=== PATIENT | female | born 1940 | race Caucasian/White ===

== ENCOUNTER → 2017-01-13 | Outpatient (CLI) | payer MEDICARE ==
--- NOTE | 2017-01-14 13:35 | MM ---
Reason for exam: screening (asymptomatic). Last mammogram was performed 1 year ago. History: Patient is postmenopausal and had first child at age 33. Family history of breast cancer in aunt at age 50. Cyst aspiration of the right breast, June 29, 2002. Took estrogen for 19 years beginning at age 53. Physical Findings: A clinical breast exam by your physician is recommended on an annual basis and results should be correlated with mammographic findings. MG 3D Screening Mammo W/Cad Bilateral CC and MLO view(s) were taken. Prior study comparison: January 07, 2016, bilateral MG 3d screening mammo w/cad. There are scattered fibroglandular densities. No significant changes when compared with prior studies. ASSESSMENT: Benign, BI-RAD 2 RECOMMENDATION: Routine screening mammogram of both breasts in 1 year.
== END | disposition home or self-care (01) ==
LOC: RADMAMWWP 11:01
PROVIDERS: ATTEND Internal Medicine
DX: Z12.31 Encounter for screening mammogram for malignant neoplasm of breast (principal)
CPT/HCPCS: 77063; G0202

== ENCOUNTER → 2018-01-14 | Outpatient (CLI) | payer MEDICARE ==
--- NOTE | 2018-01-18 14:57 | MM ---
Reason for exam: screening (asymptomatic). Last mammogram was performed 1 year ago. History: Patient is postmenopausal and had first child at age 33. Family history of breast cancer in aunt at age 50. Cyst aspiration of the right breast, June 29, 2002. Took estrogen for 19 years beginning at age 53. Physical Findings: A clinical breast exam by your physician is recommended on an annual basis and results should be correlated with mammographic findings. MG 3D Screening Mammo W/Cad Bilateral CC and MLO view(s) were taken. Prior study comparison: January 13, 2017, bilateral MG 3d screening mammo w/cad. January 07, 2016, bilateral MG 3d screening mammo w/cad. There are scattered fibroglandular densities. Right retroareolar nodular density 12 o'clock position. This finding is changed when compared with previous exams. ASSESSMENT: Incomplete: need additional imaging evaluation, BI-RAD 0 RECOMMENDATION: Special view mammogram of the right breast. If lesion persists on supplemental views, image directed ultrasound is recommended. [facility] will attempt to contact patient to return for supplemental views and ultrasound if indicated.
== END | disposition home or self-care (01) ==
LOC: RADMAMWWP 08:03
PROVIDERS: ATTEND Internal Medicine
DX: Z12.31 Encounter for screening mammogram for malignant neoplasm of breast (principal)
CPT/HCPCS: 77063; 77067

== ENCOUNTER → 2018-01-26 | Outpatient (CLI) | payer MEDICARE ==
--- NOTE | 2018-02-03 10:40 | MM ---
Reason for exam: additional evaluation requested from abnormal screening. Last mammogram was performed less than 1 month ago. History: Patient is postmenopausal and had first child at age 33. Family history of breast cancer in aunt at age 50. Cyst aspiration of the right breast, June 29, 2002. Took estrogen for 19 years beginning at age 53. Physical Findings: Nurse did not find any significant physical abnormalities on exam. MG 3D Work Up W/Cad RT Spot compression CC, spot compression MLO, and ML view(s) were taken of the right breast. Prior study comparison: January 14, 2018, bilateral MG 3d screening mammo w/cad. January 13, 2017, bilateral MG 3d screening mammo w/cad. Density less conspicuous. 6 month follow up recommended. These results were verbally communicated with the patient and result sheet given to the patient on 01/26/18. ASSESSMENT: Probably benign, BI-RAD 3 RECOMMENDATION: Follow-up diagnostic mammogram of the right breast in 6 months.
== END | disposition home or self-care (01) ==
LOC: RADMAMWWP 08:15
PROVIDERS: ATTEND Internal Medicine
DX: R92.8 Other abnormal and inconclusive findings on diagnostic imaging of breast (principal)
CPT/HCPCS: 77065; G0279; 77061

== ENCOUNTER 2018-07-10 08:18 | Emergency (ER) | payer MEDICARE ==
[2018-07-10 08:27] VITALS: BP 167/83; PULSE 82; RESP 20; TEMP 97.9
--- NOTE | 2018-07-10 08:50 | ED ---
Extremity Problem HPI - General Chief complaint: Extremity Problem,Nontraumatic Stated complaint: leg pain when walking Time Seen by Provider: 07/10/18 08:29 Source: patient, RN notes reviewed Mode of arrival: wheelchair Limitations: no limitations - History of Present Illness Initial comments: This a 77-year-old female presents emergency Department chief complaint of left leg pain. Patient states he was bothering her yesterday when she was sitting in a chair and then she got up to do laundry. Patient states that she had no injury. Patient states pain is in the back of her left knee and into her thigh region. Denies any swelling, redness or any discoloration. She has no history DVT though she is concerned at this time. Denies any chest pain or shortness of breath. Patient states that she presented today for an ultrasound. Patient states that the pain has improved since yesterday. - Related Data Allergies Allergy/AdvReac Type Severity Reaction Status Date / Time No Known Allergies Allergy Verified 07/10/18 08:26 Review of Systems ROS Statement: Those systems with pertinent positive or pertinent negative responses have been documented in the HPI. ROS Other: All systems not noted in ROS Statement are negative. Past Medical History Past Medical History: Hypertension History of Any Multi-Drug Resistant Organisms: None Reported Past Surgical History: Hysterectomy Past Psychological History: No Psychological Hx Reported Smoking Status: Never smoker Past Alcohol Use History: None Reported Past Drug Use History: None Reported General Exam Limitations: no limitations General appearance: alert, in no apparent distress Head exam: Present: atraumatic, normocephalic, normal inspection Respiratory exam: Present: normal lung sounds bilaterally. Absent: respiratory distress, wheezes, rales, rhonchi, stridor Cardiovascular Exam: Present: regular rate, normal rhythm, normal heart sounds. Absent: systolic murmur, diastolic murmur, rubs, gallop, clicks Extremities exam: Present: other (Mild tenderness to left popliteal region, full range of motion left knee with no erythema no swelling leg is neurovascularly intact with equal pedal pulses. Strength is 5/5) Course Vital Signs 07/10/18 08:23 Temperature 97.9 F Pulse Rate 82 Respiratory 20 Rate Blood Pressure 167/83 O2 Sat by Pulse 99 Oximetry Medical Decision Making - Medical Decision Making 77-year-old female presents emergency department for left leg pain. Patient is concern for possible DVT. Ultrasound was obtained which is negative for DVT. Patient most likely has a left leg strain or small Burgess cyst. Patient we discharged advised take Tylenol Motrin. She did state the pain has improved since yesterday. There is no signs of infection or erythema no swelling. Disposition Clinical Impression: Left leg pain Disposition: HOME SELF-CARE Condition: Stable Instructions: Leg Pain (ED) Additional Instructions: Please return to the Emergency Department if symptoms worsen or any other concerns. Is patient prescribed a controlled substance at d/c from ED?: No Referrals: Abisai Ovalle MD [Primary Care Provider] - 1-2 days Time of Disposition: 09:28
--- NOTE | 2018-07-10 09:15 | US ---
EXAMINATION TYPE: US venous doppler duplex LE LT DATE OF EXAM: 07/10/2018 8:42 AM COMPARISON: CLINICAL HISTORY: Pain. Pain behind knee when walking. No swelling. No redness. No hx of blood neo ts. On baby aspirin. SIDE PERFORMED: Left TECHNIQUE: The lower extremity deep venous system is examined utilizing real time linear array sonog saeed with graded compression, doppler sonography and color-flow sonography. VESSELS IMAGED: External Iliac Vein (EIV) Common Femoral Vein Deep Femoral Vein Greater Saphenous Vein * Femoral Vein Popliteal Vein Small Saphenous Vein * Proximal Calf Veins (* superficial vessels) Left Leg: Negative for DVT No popliteal fossa lesion is seen. IMPRESSION: THIS EXAMINATION IS NEGATIVE FOR DVT IN THE LEFT LEG.
== END 2018-07-10 09:56 | disposition home or self-care (01) ==
LOC: EC 08:18
DX: M79.605 Pain in left leg (principal)
CPT/HCPCS: 99283

== ENCOUNTER → 2018-07-29 | Outpatient (CLI) | payer MEDICARE ==
--- NOTE | 2018-07-29 10:47 | MM ---
Reason for exam: follow-up at short interval from prior study. Last mammogram was performed 6 months ago. History: Patient is postmenopausal and had first child at age 33. Family history of breast cancer in aunt at age 50. Cyst aspiration of the right breast, June 29, 2002. Took estrogen for 19 years beginning at age 53. Physical Findings: Nurse did not find any significant physical abnormalities on exam. MG 3D Diag Mammo W/Cad RT CC and MLO view(s) were taken of the right breast. Prior study comparison: January 26, 2018, right breast MG 3d work up w/cad RT. January 14, 2018, bilateral MG 3d screening mammo w/cad. There are scattered fibroglandular densities. Upper outer quadrant retroareolar focal asymmetry appears unchanged from 2015. These results were verbally communicated with the patient and result sheet given to the patient on 07/29/18. ASSESSMENT: Benign, BI-RAD 2 RECOMMENDATION: Return to routine screening mammogram schedule for both breasts. Back on schedule.
== END | disposition home or self-care (01) ==
LOC: RADMAMWWP 10:03
PROVIDERS: ATTEND Internal Medicine
DX: R92.8 Other abnormal and inconclusive findings on diagnostic imaging of breast (principal)
CPT/HCPCS: 77065; G0279; 77061

== ENCOUNTER → 2018-08-25 | Outpatient (CLI) | payer MEDICARE ==
--- NOTE | 2018-08-25 11:29 | XR ---
EXAMINATION TYPE: XR knee complete bilateral DATE OF EXAM: 08/25/2018 CLINICAL HISTORY: Bilateral posterior knee pain, greater on the left. TECHNIQUE: Three views of the bilateral knees were obtained. COMPARISON: None. FINDINGS: There is no acute fracture/dislocation evident in either knee. There is prominence of the soft tissues overlying the medial compartment of the left knee in the region of the medial collatera l ligament with well-circumscribed fragment at the cranial aspect of the medial femoral condyle likel y from prior injury. There are very few small marginal osteophytes of the patellofemoral compartment and medial compartment bilaterally. No suprapatellar joint effusion of either knee. IMPRESSION: There is no acute fracture or dislocation in either knee. Mild bicompartmental arthrosis of both knees. Prominent soft tissues overlying the medial compartment on the left in the region of the medial collateral ligament. MRI could assess for ligament injury.
== END | disposition home or self-care (01) ==
LOC: RADXRMAIN 10:34
PROVIDERS: ATTEND Internal Medicine
DX: M17.0 Bilateral primary osteoarthritis of knee (principal)

== ENCOUNTER → 2018-09-06 | Outpatient (CLI) | payer MEDICARE ==
--- NOTE | 2018-09-06 11:29 | US ---
EXAMINATION TYPE: US venous doppler duplex LE LT DATE OF EXAM: 09/06/2018 11:13 AM COMPARISON: Left lower extremity venous ultrasound July 10, 2018 CLINICAL HISTORY: I80.9 Phlebitis and Thrombophlebitis Unspecified. left leg pain and swelling, patie nt states better today, no h/o dvt SIDE PERFORMED: left TECHNIQUE: The lower extremity deep venous system is examined utilizing real time linear array sonog saeed with graded compression, doppler sonography and color-flow sonography. VESSELS IMAGED: External Iliac Vein (EIV) Common Femoral Vein Deep Femoral Vein Greater Saphenous Vein * Femoral Vein Popliteal Vein Small Saphenous Vein * Proximal Calf Veins (* superficial vessels) Left Leg: Appears negative for DVT, within left pop fossa there is a 4.8cm fluid collection that may represent Burgess's cyst *spoke with Jem at office Grayscale, color doppler, spectral doppler imaging performed of the deep veins of the left lower extr emity. There is normal flow, compressibility, vascular waveforms. IMPRESSION: No ultrasound evidence for acute DVT in the left lower extremity on today's study. Leoncio bean end of study there is elongated moderate-sized popliteal or Burgess's cyst felt present which was no t clearly identified on prior ultrasound.
== END ==
LOC: RADUSWWP 10:39
PROVIDERS: ATTEND Orthopaedic Surgery
DX: M79.605 Pain in left leg (principal); M25.561 Pain in right knee; M17.11 Unilateral primary osteoarthritis, right knee; M17.12 Unilateral primary osteoarthritis, left knee

== ENCOUNTER → 2020-03-07 | Outpatient (CLI) | payer MEDICARE ==
--- NOTE | 2020-03-08 09:54 | MM ---
Reason for exam: screening (asymptomatic). Last mammogram was performed 1 year and 7 months ago. History: Patient is postmenopausal and had first child at age 33. Family history of breast cancer in aunt at age 50. Cyst aspiration of the right breast, June 29, 2002. Took estrogen for 19 years beginning at age 53. Physical Findings: A clinical breast exam by your physician is recommended on an annual basis and results should be correlated with mammographic findings. MG 3D Screening Mammo W/Cad Bilateral CC and MLO view(s) were taken. Prior study comparison: July 29, 2018, right breast MG 3d diag mammo w/cad RT. January 26, 2018, right breast MG 3d work up w/cad RT. There are scattered fibroglandular densities. Stable benign calcifications. There is no discrete abnormality. No significant changes when compared with prior studies. ASSESSMENT: Benign, BI-RAD 2 RECOMMENDATION: Routine screening mammogram of both breasts in 1 year.
== END | disposition home or self-care (01) ==
LOC: RADMAMWWP 10:24
PROVIDERS: ATTEND Internal Medicine
DX: Z12.31 Encounter for screening mammogram for malignant neoplasm of breast (principal)
CPT/HCPCS: 77063; 77067

== ENCOUNTER → 2021-10-29 | Outpatient (CLI) | payer MEDICARE ==
--- NOTE | 2021-10-29 13:14 | CT ---
EXAMINATION TYPE: CT elbow RT wo con DATE OF EXAM: 10/29/2021 COMPARISON: None HISTORY: Rt radial head fx CT DLP: 135.40 mGycm Automated exposure control for dose reduction was used. FINDINGS: Exam is markedly limited due to severe motion artifact. There is soft tissue edema with a comminuted intra-articular fracture of the radial head. Pathologic joint effusion suspected posteriorly and anteriorly. Visualized ulna and humerus are grossly intact IMPRESSION: DISPLACED INTRA-ARTICULAR COMMINUTED FRACTURE OF THE RADIAL HEAD
== END | disposition home or self-care (01) ==
LOC: RADCTMAIN 12:13
PROVIDERS: ATTEND Orthopaedic Surgery
DX: S52.121A Displaced fracture of head of right radius, initial encounter for closed fracture (principal); X58.XXXA Exposure to other specified factors, initial encounter

== ENCOUNTER 2021-11-10 10:40 | Day surgery (SDC) | payer MEDICARE ==
[2021-11-05 15:38] VITALS: BMI 33.2
[~2021-11-10 10:40] MED LIST: DEXAMETHASONE SOD PHOSPHATE 4 MG/ML 1 ML VIAL IV ONE; HYDROmorphone 0.5 MG/0.5 ML SYRINGE IVP PRN; LACTATED RINGERS 1,000 ML IV SCH; LIDOCAINE 1% (10MG/ML) FOR IV START INTRADERMA PRN; MIDAZOLAM 2 MG/2 ML VIAL IV PRN; ONDANSETRON 4 MG/2 ML VIAL IVP ONE
[2021-11-10 11:01] VITALS: TEMP 98.5
[2021-11-10] MEDS ORDERED: MIDAZOLAM 2 MG/2 ML VIAL IVP ONE (11:47)
[2021-11-10 11:59] VITALS: RESP 16
--- NOTE | 2021-11-10 11:59 | P.ANPRN ---
Procedure Note - Anesthesia - Nerve Block Performed Right Supraclavicular Single Time Out Performed: Yes (1147) Date of Procedure: 11/10/21 Procedure Start Time: 11:47 Procedure Stop Time: 11:52 Location of Patient: PreOp Indication: Acute Post-Operative Pain, Requested by Surgeon Sedation Type: Sedate with meaningful contact maintained Preparation: Sterile Prep Position: Sitting Catheter: None Needle Types: Pajunk Needle Gauge: 21 Ultrasound used to visualize needle placement: Yes Ultrasound used to observe medication spread: Yes Injectate: 0.5% Ropivacaine (see comment for volume) (0.5% Ropivacaine (see comment for volume)- (12 mL of 0.5% ropivacaine mixed with10 mL of preservative free normal saline injected with negative intermittent aspiration) Blood Aspirated: No Pain Paresthesia on Injection Noted: No Resistance on Injection: Normal Image Stored and Saved: Yes Events: Uneventful and Well Tolerated
[2021-11-10] MEDS ORDERED: PROPOFOL 10 MG/ML 20 ML VIAL IV ONE (13:41)
[2021-11-10] MEDS ORDERED: fentaNYL (PF) 50 MCG/ML 2 ML AMP ONE (13:41)
[2021-11-10] MEDS ORDERED: ROPIVACAINE 5 MG/ML 30 ML VIAL ONE (13:41)
[2021-11-10] MEDS ORDERED: SODIUM CHLORIDE 0.9% (PF) 10 ML VIAL ONE (13:41)
[2021-11-10] MEDS ORDERED: MIDAZOLAM 2 MG/2 ML VIAL ONE (13:41)
[2021-11-10 15:40] VITALS: BP 123/70; PULSE 87
--- NOTE | 2021-11-10 15:41 | P.OP ---
Date of Procedure: 11/10/21 Preoperative Diagnosis: Right radial head fracture Postoperative Diagnosis: Same Procedure(s) Performed: Right radial head arthroplasty Implants: Skeletal dynamics, 9 stem, 22 mm head Anesthesia: MAC, regional Surgeon: Kalyani Myers Director Script #1: Julieta Greene Estimated Blood Loss (ml): 20 Pathology: none sent Condition: stable Disposition: PACU Indications for Procedure: Kimberly is a 81-year-old female who sustained a ground-level fall resulting in a right radial head fracture. A large fragment of the radial head has been displaced and is sitting lateral to the capitellum. We had a long discussion with the patient and her family about treatment options. To regain any motion that piece would need to be removed. 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 Given her activity level we decided to proceed with a radial head arthroplasty. Description of Procedure: The patient, operative extremity, and procedure were identified in the preoperative holding area. After informed consent was obtained the patient received regional block by the anesthesia team. She was then brought back to the operating room where the extremity was prepped and draped in normal sterile fashion with tourniquet along the patient's brachium. After formal timeout was performed the tourniquet was inflated. A oblique incision was then made from the lateral epicondyles to the radius, crossing anterior to the radial head. Dissection was carried down to the forearm fascia with care taken to protect the cutaneous nerves. The interval between EDC and ECRB was utilized to access the radiocapitellar joint. The radiocapitellar joint was accessed anterior to the collateral ligament. Once the capsulotomy was performed the displaced piece of the radial head was easily removed. Dissection was carried down around the radial neck careful to protect the PI and with pronation. The manger of the radial head was removed with the saw. The 2 pieces were then reunited in the sizing guide. The radial head measured 24 mm. The spacer guide was then utilized to make a new cut in the radial neck. Sequential broaches were then used in the proximal radius until some cortical purchase was felt. This was with the size 9 broach. A trial with a 0 neck, 9 broach, and 22 mm head were then inserted. Sizing was assessed on fluoroscopy and found to be adequate, without overstuffing. The trial was removed and the wound was copiously irrigated. Final implants were then opened and implanted. The radial head was placed on the stem and provisionally fixed. The forearm jig was then utilized to set the tilt of the radial head. The screw was then tightened down to the torque limitation. All instruments were then removed the size and placement of the hardware was again checked with fluoroscopy. Wound was again irrigated. The annular ligament was then repaired with 0 Vicryl. The longitudinal split between the extensor tendons was also repaired with Vicryl. Tourniquet was then let down and hemostasis was achieved. The remainder of the wound was closed in a layered fashion with 4-0 Monocryl and skin glue. Wound was dressed with a 4 x 4 and Tegaderm and Meek wrap. Patient was aroused by the anesthesia team and brought back to PACU in stable condition.
== END 2021-11-10 16:11 | disposition home or self-care (01) ==
LOC: OR 10:40
PROVIDERS: ATTEND Orthopaedic Surgery Hand Surgery
DX: S52.121A Displaced fracture of head of right radius, initial encounter for closed fracture (principal); W19.XXXA Unspecified fall, initial encounter; I10 Essential (primary) hypertension; M19.90 Unspecified osteoarthritis, unspecified site; K21.9 Gastro-esophageal reflux disease without esophagitis; Z97.3 Presence of spectacles and contact lenses; Z90.710 Acquired absence of both cervix and uterus; Z82.49 Family history of ischemic heart disease and other diseases of the circulatory system; Z79.1 Long term (current) use of non-steroidal anti-inflammatories (NSAID); Z79.891 Long term (current) use of opiate analgesic; Z79.899 Other long term (current) drug therapy; Z79.82 Long term (current) use of aspirin; Z88.5 Allergy status to narcotic agent
CPT/HCPCS: 64415; 76942; 24666; C1776; J2250; J1100; J0690; J2405; J3010; J2795; J2704

== ENCOUNTER → 2022-03-12 | Outpatient (CLI) | payer MEDICARE ==
--- NOTE | 2022-03-13 09:50 | BD ---
EXAMINATION TYPE: Axial Bone Density DATE OF EXAM: 03/12/2022 COMPARISON: NONE CLINICAL HISTORY: 81 years year old Female. ICD-10 CODE: M81.0 AGE RELATED OSTEOPOROSIS Height: 61 Weight: 168.6 FRAX RISK QUESTIONS: Alcohol (3 or more units per day): NO Family History (Parent hip fracture): NO Glucocorticoids (More than 3mos): NO History of Fracture in Adulthood: YES Secondary Osteoporosis: 1. Type 1 Diabetes: NO 2. Hyperthyroidism: NO 3. Menopause before 45: YES 4. Malnutrition: NO 5. Chronic liver disease: NO Rheumatoid Arthritis: NO Current Tobacco Use: NO RISK FACTORS HISTORY OF: Hip Fracture (Right/Left): NO Spine Fracture: NO History of Wrist Fracture: NO Surgery to Spine/Hip(right/left)/Wrist (right/left): NO Family History of Osteoporosis: NO Active: YES Diet low in dairy products/other sources of calcium: NO Postmenopausal woman: YES Take estrogen and/or progesterone medications: NO Lost more than 2 inches in height since high school: NO Frequent falls: NO Poor Health: NO Hyperparathyroidism: NO Adrenal Insufficiency: NO MEDICATIONS: Prednisone or other steroids: NO Thyroid Medications: NO Osteoporosis Medications: NO Additional Medications: BP MEDS, MULTI VIT., EXAM MEASUREMENTS: Bone mineral densitometry was performed using the Myfacepage System. Bone mineral density as measured about the Lumbar spine is: ----- L1-L4(G/cm2): 1.221 T Score Values are as follows: ----- L1: -0.3 ----- L2: -0.3 ----- L3: 1.0 ----- L4: 0.6 ----- L1-L4: 0.3 Bone mineral density has: INCREASED 1.9 % since study of: 12/04/2011 Bone mineral density about the R hip (g/cm2): 0.830 Bone mineral density about the L hip (g/cm2): 0.884 T Score values are as follows: -----R Neck: -1.5 -----L Neck: -1.1 -----R Total: -0.4 -----L Total: -0.4 Bone mineral density has: DECREASED 8.5 % since study of: 12/04/2011 FRAX%s: The graph provided illustrates a 18.8% chance for a major osteoporotic fx and a 4.0% chance f or the hips probability for fx in 10 years time. IMPRESSION: Normal (Values between +1 and -1 indicate normal bone mass). Consider repeating this study in 5 year s or sooner if there is some new clinical indication. NOTE: T-SCORE=SD OF THE YOUNG ADULT MEAN.
== END | disposition home or self-care (01) ==
LOC: RADBDWWP 07:54
PROVIDERS: ATTEND Pediatrics
DX: M85.89 Other specified disorders of bone density and structure, multiple sites (principal)
CPT/HCPCS: 77080

== ENCOUNTER 2023-05-24 13:13 | Inpatient (IN) | payer MEDICARE ==
[2023-05-24] MEDS ORDERED: SODIUM CHLORIDE 0.9% 500 ML 500 ML IV ONE (13:43)
--- NOTE | 2023-05-24 13:46 | ED ---
General Adult HPI - General Chief complaint: Altered Mental Status Stated complaint: AMS Time Seen by Provider: 05/24/23 13:35 Source: patient, RN notes reviewed, old records reviewed Mode of arrival: EMS Limitations: altered mental status - History of Present Illness Initial comments: This is a 82-year-old female presents emergency Department because of altered mental status. states the last couple of days she has gotten slowly more more confused and today it was really bad to the point where she was unable to use her own phone. states she's normally alert and oriented 4. denies any trauma. There's been no history of any fevers chills. Patient had no complaints of any pain. Patient himself does not know why she is here. - Related Data Home Medications Medication Instructions Recorded Confirmed lisinopriL [Zestril] 10 mg PO DAILY 11/05/21 05/24/23 Allergies Allergy/AdvReac Type Severity Reaction Status Date / Time hydrocodone AdvReac dizzy Verified 05/24/23 15:51 Review of Systems ROS Statement: Those systems with pertinent positive or pertinent negative responses have been documented in the HPI. ROS Other: All systems not noted in ROS Statement are negative. Past Medical History Past Medical History: GERD/Reflux, Hypertension, Musculoskeletal Disorder, Osteoarthritis (OA) Additional Past Medical History / Comment(s): fell on ice 2 weeks ago & fx. right elbow-currently in splint & sling, hx. rheumatic fever as a teen History of Any Multi-Drug Resistant Organisms: None Reported Past Surgical History: Hysterectomy Additional Past Surgical History / Comment(s): colonoscopy Past Anesthesia/Blood Transfusion Reactions: No Reported Reaction Past Psychological History: No Psychological Hx Reported Smoking Status: Never smoker - Past Family History Mother Family Medical History: CVA/TIA General Exam - General Exam Comments Initial Comments: GENERAL: Patient is well-developed and well-nourished. Patient is nontoxic and well- hydrated and is in no acute distress. ENT: Neck is soft and supple. No significant lymphadenopathy is noted. Oropharynx is clear. Moist mucous membranes. Neck has full range of motion without eliciting any pain. EYES: The sclera were anicteric and conjunctiva were pink and moist. Extraocular movements were intact and pupils were equal round and reactive to light. Eyelids were unremarkable. PULMONARY: Unlabored respirations. Good breath sounds bilaterally. No audible rales rhonc hi or wheezing was noted. CARDIOVASCULAR: There is a regular rate and rhythm without any murmurs gallops or rubs. ABDOMEN: Soft and nontender with normal bowel sounds. SKIN: Skin is clear with no lesions or rashes and otherwise unremarkable. NEUROLOGIC: Patient is alert and oriented 2. Cranial nerves II through XII are grossly intact. Motor and sensory are also intact. Normal speech, volume and content. Symmetrical smile. MUSCULOSKELETAL: Normal extremities with adequate strength and full range of motion. LYMPHATICS: No significant lymphadenopathy is noted PSYCHIATRIC: Normal psychiatric evaluation. Limitations: altered mental status Course Vital Signs 05/24/23 13:25 Temperature 98.5 F Pulse Rate 75 Respiratory 16 Rate Blood Pressure 180/73 O2 Sat by Pulse 97 Oximetry Medical Decision Making - Medical Decision Making EKG is interpreted by myself. EKG shows a sinus rhythm at 76 bpm CO interval 239 QRS is 82 QT interval 382 QTC is 412 per patient's EKG shows no ST segment elevation or depression. Was pt. sent in by a medical professional or institution (, PA, HEAD OF MARKETING, urgent care, hospital, or senior living...) When possible be specific @ -No Did you speak to anyone other than the patient for history (EMS, parent, family, police, friend...)? What history was obtained from this source @ - gave us all the history Did you review nursing and triage notes (agree or disagree)? Why? @ -I reviewed and agree with nursing and triage notes Were old charts reviewed (outside hosp., previous admission, EMS record, old EKG, old radiological studies, urgent care reports/EKG's, senior living records)? Report findings @ -No old charts were reviewed Differential Diagnosis (chest pain, altered mental status, abdominal pain women, abdominal pain men, vaginal bleeding, weakness, fever, dyspnea, syncope, headache, dizziness, GI bleed, back pain, seizure, CVA, palpatations, mental health, musculoskeletal)? @ -Differential CVA Ischemic stroke, hemorrhagic stroke, brain tumor, atypical migraine, Wernicke's encephalopathy, seizure, multiple sclerosis, meningitis, encephalitis, hypoglycemia, Guillain-Espinosa, electrolytes disturbance, myasthenia gravis.... This is not meant to be an all-inclusive list EKG interpreted by me (3pts min.). @ -As above X-rays interpreted by me (1pt min.). @ -Chest x-ray shows no acute abnormality CT interpreted by me (1pt min.). @ -CT of the brain shows a area of ischemia in the parietal region U/S interpreted by me (1pt. min.). @ -None done What testing was considered but not performed or refused? (CT, X-rays, U/S, labs)? Why? @ -None What meds were considered but not given or refused? Why? @ -None Did you discuss the management of the patient with other professionals (professionals i.e. , PA, HEAD OF MARKETING, lab, RT, psych nurse, social science analyst, rn telephonic, teacher, fourth officer, briefcase sewer)? Give summary @ -I spoke with Dr. Irizarry he agreed to admit the patient Was smoking cessation discussed for >3mins.? @ -No Was critical care preformed (if so, how long)? @ -No Were there social determinants of health that impacted care today? How? (Homelessness, low income, unemployed, alcoholism, drug addiction, transportation, low edu. Level, literacy, decrease access to med. care, retirement, rehab)? @ -No Was there de-escalation of care discussed even if they declined (Discuss DNR or withdrawal of care, Hospice)? DNR status @ -No What co-morbidities impacted this encounter? (DM, HTN, Smoking, COPD, CAD, Cancer, CVA, ARF, Chemo, Hep., AIDS, mental health diagnosis, sleep apnea, morbid obesity)? @ -None Was patient admitted / discharged? Hospital course, mention meds given and route, prescriptions, significant lab abnormalities, going to OR and other pertinent info. @ -Patient's mental status continued to be altered. Undiagnosed new problem with uncertain prognosis? @ -No Drug Therapy requiring intensive monitoring for toxicity (Heparin, Nitro, Insulin, Cardizem)? @ -No Were any procedures done? @ -No Diagnosis/symptom? @ -CVA Acute, or Chronic, or Acute on Chronic? @ -Acute Uncomplicated (without systemic symptoms) or Complicated (systemic symptoms)? @ -Complicated Side effects of treatment? @ -No Exacerbation, Progression, or Severe Exacerbation? @ -No Poses a threat to life or bodily function? How? (Chest pain, USA, SD, pneumonia, PE, COPD, DKA, ARF, appy, cholecystitis, CVA, Diverticulitis, Homicidal, Suicidal, threat to staff... and all critical care pts) @ -Yes this could lead to a massive stroke and possibly - Lab Data Result diagrams: 05/24/23 14:27 05/24/23 14:27 Lab Results 05/24/23 05/24/23 05/24/23 Range/Units 14:27 14:27 14:27 WBC 7.9 (3.8-10.6) k/uL RBC 4.07 (3.80-5.40) m/uL Hgb 13.4 (11.4-16.0) gm/dL Hct 40.9 (34.0-46.0) % MCV 100.4 H (80.0-100.0) fL MCH 32.8 (25.0-35.0) pg MCHC 32.7 (31.0-37.0) g/dL RDW 13.3 (11.5-15.5) % Plt Count 293 (150-450) k/uL MPV 8.7 Neutrophils % 35 % Lymphocytes % 54 % Monocytes % 6 % Eosinophils % 2 % Basophils % 0 % Neutrophils # 2.8 (1.3-7.7) k/uL Lymphocytes # 4.2 (1.0-4.8) k/uL Monocytes # 0.5 (0-1.0) k/uL Eosinophils # 0.1 (0-0.7) k/uL Basophils # 0.0 (0-0.2) k/uL PT 9.7 (9.0-12.0) sec INR 0.9 (<1.2) APTT 20.4 L (22.0-30.0) sec Sodium (137-145) mmol/L Potassium (3.5-5.1) mmol/L Chloride (98-107) mmol/L Carbon Dioxide (22-30) mmol/L Anion Gap mmol/L BUN (7-17) mg/dL Creatinine (0.52-1.04) mg/dL Est GFR (CKD-EPI)AfAm (>60 ml/min/1.73 sqM) Est GFR (CKD-EPI)NonAf (>60 ml/min/1.73 sqM) Glucose (74-99) mg/dL Calcium (8.4-10.2) mg/dL Total Bilirubin (0.2-1.3) mg/dL AST (14-36) U/L ALT (4-34) U/L Alkaline Phosphatase (38-126) U/L Troponin I (0.000-0.034) ng/mL Total Protein (6.3-8.2) g/dL Albumin (3.5-5.0) g/dL Urine Color Colorless Urine Appearance Clear (Clear) Urine pH 6.5 (5.0-8.0) Ur Specific [place] 1.005 (1.001-1.035) Urine Protein Negative (Negative) Urine Glucose (UA) Negative (Negative) Urine Ketones Negative (Negative) Urine Blood Negative (Negative) Urine Nitrite Negative (Negative) Urine Bilirubin Negative (Negative) Urine Urobilinogen <2.0 (<2.0) mg/dL Ur Leukocyte Esterase Negative (Negative) Urine Opiates Screen Not Detected (NotDetected) Ur Oxycodone Screen Not Detected (NotDetected) Urine Methadone Screen Not Detected (NotDetected) Ur Propoxyphene Screen Not Detected (NotDetected) Ur Barbiturates Screen Not Detected (NotDetected) U Tricyclic Antidepress Not Detected (NotDetected) Ur Phencyclidine Scrn Not Detected (NotDetected) Ur Amphetamines Screen Not Detected (NotDetected) U Methamphetamines Scrn Not Detected (NotDetected) U Benzodiazepines Scrn Not Detected (NotDetected) Urine Cocaine Screen Not Detected (NotDetected) U Marijuana (THC) Screen Not Detected (NotDetected) 05/24/23 05/24/23 Range/Units 14:27 14:27 WBC (3.8-10.6) k/uL RBC (3.80-5.40) m/uL Hgb (11.4-16.0) gm/dL Hct (34.0-46.0) % MCV (80.0-100.0) fL MCH (25.0-35.0) pg MCHC (31.0-37.0) g/dL RDW (11.5-15.5) % Plt Count (150-450) k/uL MPV Neutrophils % % Lymphocytes % % Monocytes % % Eosinophils % % Basophils % % Neutrophils # (1.3-7.7) k/uL Lymphocytes # (1.0-4.8) k/uL Monocytes # (0-1.0) k/uL Eosinophils # (0-0.7) k/uL Basophils # (0-0.2) k/uL PT (9.0-12.0) sec INR (<1.2) APTT (22.0-30.0) sec Sodium 141 (137-145) mmol/L Potassium 4.4 (3.5-5.1) mmol/L Chloride 107 (98-107) mmol/L Carbon Dioxide 26 (22-30) mmol/L Anion Gap 8 mmol/L BUN 18 H (7-17) mg/dL Creatinine 0.79 (0.52-1.04) mg/dL Est GFR (CKD-EPI)AfAm 82 (>60 ml/min/1.73 sqM) Est GFR (CKD-EPI)NonAf 71 (>60 ml/min/1.73 sqM) Glucose 83 (74-99) mg/dL Calcium 9.1 (8.4-10.2) mg/dL Total Bilirubin 0.8 (0.2-1.3) mg/dL AST 34 (14-36) U/L ALT 13 (4-34) U/L Alkaline Phosphatase 57 (38-126) U/L Troponin I <0.012 (0.000-0.034) ng/mL Total Protein 6.5 (6.3-8.2) g/dL Albumin 3.6 (3.5-5.0) g/dL Urine Color Urine Appearance (Clear) Urine pH (5.0-8.0) Ur Specific [place] (1.001-1.035) Urine Protein (Negative) Urine Glucose (UA) (Negative) Urine Ketones (Negative) Urine Blood (Negative) Urine Nitrite (Negative) Urine Bilirubin (Negative) Urine Urobilinogen (<2.0) mg/dL Ur Leukocyte Esterase (Negative) Urine Opiates Screen (NotDetected) Ur Oxycodone Screen (NotDetected) Urine Methadone Screen (NotDetected) Ur Propoxyphene Screen (NotDetected) Ur Barbiturates Screen (NotDetected) U Tricyclic Antidepress (NotDetected) Ur Phencyclidine Scrn (NotDetected) Ur Amphetamines Screen (NotDetected) U Methamphetamines Scrn (NotDetected) U Benzodiazepines Scrn (NotDetected) Urine Cocaine Screen (NotDetected) U Marijuana (THC) Screen (NotDetected) Disposition Clinical Impression: CVA (cerebral vascular accident) Disposition: ADMITTED IP TO THIS HOSP Referrals: Wes Martin MD [Primary Care Provider] - 1-2 days Time of Disposition: 16:49
[2023-05-24 14:38] LABS: Appearance,Urine Clear (Clear); Bilirubin,Urine Negative (Negative); Blood,Urine Negative (Negative); Color,Urine Colorless; Glucose,Urine (UA) Negative (Negative); Ketones,Urine Negative (Negative); Leukocyte Esterase,Urine Negative (Negative); Nitrite,Urine Negative (Negative); PH, Urine 6.5 (5.0-8.0); Protein,Urine Negative (Negative); Specific Gravity,Urine 1.005 (1.001-1.035); Urobilinogen,Urine <2.0 mg/dL (<2.0)
[2023-05-24 14:46] LABS: Basophils % (A) 0 %; Eosinophils # (A) 0.1 k/uL (0-0.7); Eosinophils % (A) 2 %; HCT 40.9 % (34.0-46.0); HGB 13.4 gm/dL (11.4-16.0); Lymphocytes # (A) 4.2 k/uL (1.0-4.8); Lymphocytes % (A) 54 %; MCH 32.8 pg (25.0-35.0); MCHC 32.7 g/dL (31.0-37.0); MCV 100.4 fL (80.0-100.0); Mean Platelet Volume 8.7; Monocytes # (A) 0.5 k/uL (0-1.0); Monocytes % (A) 6 %; Neutrophils # (A) 2.8 k/uL (1.3-7.7); Neutrophils % (A) 35 %; Platelet Count 293 k/uL (150-450); RBC 4.07 m/uL (3.80-5.40); RDW 13.3 % (11.5-15.5); WBC 7.9 k/uL (3.8-10.6)
[2023-05-24 14:49] LABS: ALT 13 U/L (4-34); AST 34 U/L (14-36); African American GFR (CKD) 82 (>60 ml/min/1.73 sqM); Albumin 3.6 g/dL (3.5-5.0); Alkaline Phosphatase 57 U/L (38-126); Anion Gap 8 mmol/L; Blood Urea Nitrogen 18 mg/dL (7-17); Calcium 9.1 mg/dL (8.4-10.2); Carbon Dioxide 26 mmol/L (22-30); Chloride 107 mmol/L (98-107); Glucose 83 mg/dL (74-99); Non-African American GFR(CKD) 71 (>60 ml/min/1.73 sqM); Potassium 4.4 mmol/L (3.5-5.1); Sodium 141 mmol/L (137-145); Total Bilirubin 0.8 mg/dL (0.2-1.3); Total Protein 6.5 g/dL (6.3-8.2)
[2023-05-24 14:51] LABS: Amphetamine Screen,Urine Not Detected (NotDetected); Barbiturate Screen,Urine Not Detected (NotDetected); Benzodiazepines Screen,Urine Not Detected (NotDetected); Cocaine Screen,Urine Not Detected (NotDetected); INR 0.9 (<1.2); Methadone Screen, Urine Not Detected (NotDetected); Opiate Screen,Urine Not Detected (NotDetected); Oxycodone Screen, Urine Not Detected (NotDetected); Phencyclidine Screen,Urine Not Detected (NotDetected); Prothrombin Time 9.7 sec (9.0-12.0); Tricyclic Antidepressant,Urine Not Detected (NotDetected); Urn Cannabinoid Scrn Not Detected (NotDetected)
[2023-05-24 14:59] LABS: Partial Thromboplastin Time 20.4 sec (22.0-30.0)
--- NOTE | 2023-05-24 15:10 | CT ---
EXAMINATION TYPE: CT brain wo con DATE OF EXAM: 05/24/2023 COMPARISON: None HISTORY: AMS, confusion CT DLP: 1141 mGycm Automated exposure control for dose reduction was used. FINDINGS: Ventricular system is midline. There is an area of low attenuation in the left posterior white matter . Extends to the left parietal cortex. There is no evidence of acute hemorrhage or mass effect. No mi dline shift. Intracranial atherosclerotic changes. Calvarium intact. Nasal septal deviation. Orbits are symmetric. Fat attenuation within the atrium. IMPRESSION: LOW ATTENUATION LEFT POSTERIOR PARIETAL LOBE. ACUTE/SUBACUTE ISCHEMIA IN THE DIFFERENTIAL DIAGNOSIS. CORRELATE CLINICALLY. NO ACUTE HEMORRHAGE.
--- NOTE | 2023-05-24 16:29 | XR ---
EXAMINATION TYPE: XR chest 2V DATE OF EXAM: 05/24/2023 4:19 PM CLINICAL INDICATION:Female, 82 years old with history of altered mental status; [facility] COMPARISON: None TECHNIQUE: XR chest 2V Frontal and lateral views of the chest. FINDINGS: Lungs/Pleura: There is no evidence of pleural effusion, focal consolidation, or pneumothorax. Pulmonary vascularity: Unremarkable. Heart/mediastinum: Cardiomediastinal silhouette is unremarkable. Musculoskeletal: No acute osseous pathology. Other findings: None IMPRESSION: No acute cardiopulmonary disease/process.
[2023-05-24] MEDS ORDERED: ASPIRIN 325 MG TAB PO STA (16:49)
--- NOTE | 2023-05-24 17:16 | CT ---
EXAMINATION TYPE: CODE STROKE: CTA head neck CT DLP: 378.0 mGycm, Automated exposure control for dose reduction was used. DATE OF EXAM: 05/24/2023 5:05 PM COMPARISON: CT head same day. CLINICAL INDICATION:Female, 82 years old with history of Stroke; [facility], abnormal brain CT TECHNIQUE: Axially acquired helical CT angiogram of the head and neck was obtained with contrast. Axi al images are supplemented with 3D reconstructions [facility] NASCET criteria used. Contrast used:65 cc mL of Isovue 370 with IV Contrast, Oral contrast used: None. FINDINGS: CTA HEAD: No evidence of acute intracranial hemorrhage, mass effect, or midline shift. The ventricles, sulci, a nd cisterns are unremarkable. The visualized portions of the internal carotid arteries, middle cerebral arteries, anterior cerebral arteries, and posterior cerebral arteries are patent. The basilar and vertebral arteries are patent. CTA NECK: Right Carotid System: The common carotid and external carotid arteries are patent. There is less than 25-50 % stenosis at t he carotid bifurcation secondary to calcified plaque. The rest of the internal carotid artery is castellano nt. Left Carotid System: The common carotid and external carotid arteries are patent. There is less than 25% stenosis at the c arotid bifurcation secondary to calcified plaque. The rest of the internal carotid artery is patent. Vertebral arteries are patent without evidence hemodynamically significant stenosis. There is a three-vessel aortic arch. The origins of the great vessels are patent. No evidence of hemo dynamically significant stenosis. Upper thorax: IMPRESSION: 1. No evidence of dissection of the cervical internal carotid arteries or vertebral arteries. 2. No evidence of intracranial high-grade stenosis or intracranial aneurysm. 3. 25-50% stenosis of the right carotid bifurcation secondary to calcified plaque. Less than 25% stenosis of the left carotid bifurcation secondary to calcified plaque.
[2023-05-24] MEDS: ENOXAPARIN 40 MG/0.4 ML SYRINGE SQ SCH (19:32)
[2023-05-24] MEDS: CLOPIDOGREL 75 MG TAB PO SCH (19:33)
[2023-05-24] MEDS ORDERED: ACETAMINOPHEN TAB 325 MG TAB PO PRN (21:02)
[2023-05-24] MEDS ORDERED: MELATONIN 3 MG TABLET PO PRN (21:02)
[2023-05-24] MEDS ORDERED: NALOXONE 0.4 MG/ML 1 ML VIAL IV PRN (21:02)
[2023-05-24] MEDS ORDERED: CALCIUM CARBONATE 500 MG CHEWABLE PO PRN (21:02)
[2023-05-24] MEDS ORDERED: ONDANSETRON 4 MG/2 ML VIAL IVP PRN (21:02)
[2023-05-24] MEDS ORDERED: ALPRAZolam 0.25 MG TAB PO PRN (21:02)
[2023-05-24] MEDS: ATORVASTATIN 40 MG TAB PO SCH (21:24)
--- NOTE | 2023-05-24 22:06 | P.HPIM ---
History of Present Illness H&P Date: 05/24/23 Chief Complaint: Neuro symptoms This is a very pleasant 82-year-old patient who follows with Dr. 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 4 days ago developed visiting family out of state. She is waiting for someone to come down. Wednesday she felt strange, started seeing doubled. [place] a bit confused.. Whether were driving back to [place] she was unable to calculate the distance normally she is very good with numbers. Has not been feeling right since then. She is finding it difficult to use some phrases. Difficult to use a telephone. No trouble walking. No change in speech. Review of systems: GEN.: None EYES: None HEENT: None NECK: None RESPIRATORY: None CARDIOVASCULAR: None GASTROINTESTINAL: None GENITOURINARY: None MUSCULOSKELETAL: Arthritis LYMPHATICS: None HEMATOLOGICAL: None PSYCHIATRY: None NEUROLOGICAL: As above Past medical history: GERD, hypertension, osteoarthritis, rheumatic fever as a teen Social history: . No smoking no alcohol Physical examination: VITAL SIGNS: 98.5, 75, 16, 180/73, 97% room air GENERAL: BMI 34, sitting up in agent but awake comfortable. EYES: Pupils equal. Conjunctiva normal. HEENT: External appearance of nose and ears normal, oral cavity grossly normal. NECK: JVD not raised; masses not palpable. HEART: First and second heart sounds are normal; no edema. LUNGS: Respiratory rate normal; clear to auscultation. ABDOMEN: Soft, nontender, liver spleen not palpable, no masses palpable. PSYCH: Alert and oriented x3; mood and affect normal. MUSCULOSKELETAL:No Clubbing/cyanosis;muscles-grossly intact. Brace on the left knee. OA. NEUROLOGICAL: Cranial nerves grossly intact; no facial asymmetry, power and sensation grossly intact. LYMPHATICS: No lymph nodes palpable in the axilla and neck INVESTIGATIONS, reviewed in the clinical context: White count 7.9 hemoglobin 13.4 platelets 293 sodium 141 potassium 4.4 creatinine 0.79 UA drug screen: Negative EKG tracing personally reviewed by me-no sinus rhythm CT brain: No attenuation left posterior parietal lobe acute/subacute ischemia. 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 Symptoms started about 4 days ago. Patient complained of double vision, confusion. Now having trouble finding words. Cannot remember using her phone properly. No trouble walking. No trouble swallowing. Consult speech therapy. PTOT. Neurology consult MRI of the brain with and without contrast. 2-D echocardiogram with bubble study. Aspirin. Lasix. Lipitor -Primary osteophyte as multiple joints Patient does have a brace in the left knee -Essential hypertension It has been 4 days since initial presentation. Lisinopril hydrochlorothiazide 20/12.5 twice a day Care was discussed with the patient. Questions answered. Past Medical History Past Medical History: GERD/Reflux, Hypertension, Musculoskeletal Disorder, Osteoarthritis (OA) Additional Past Medical History / Comment(s): fell on ice 2 weeks ago & fx. right elbow-currently in splint & sling, hx. rheumatic fever as a teen History of Any Multi-Drug Resistant Organisms: None Reported Past Surgical History: Hysterectomy Additional Past Surgical History / Comment(s): colonoscopy Past Anesthesia/Blood Transfusion Reactions: No Reported Reaction Past Psychological History: No Psychological Hx Reported Smoking Status: Never smoker - Past Family History Mother Family Medical History: CVA/TIA Medications and Allergies Home Medications Medication Instructions Recorded Confirmed Type lisinopriL [Zestril] 10 mg PO DAILY 11/05/21 05/24/23 History Allergies Allergy/AdvReac Type Severity Reaction Status Date / Time hydrocodone AdvReac dizzy Verified 05/24/23 15:51 Physical Exam Vitals: Vital Signs Temp Pulse Resp BP Pulse Ox 05/24/23 13:25 98.5 F 75 16 180/73 97 Intake and Output 05/24/23 05/24/23 05/24/23 06:59 14:59 22:59 Other: Weight 81.647 kg Results CBC & Chem 7: 05/24/23 14:27 05/24/23 14:27 Labs: Abnormal Lab Results - Last 24 Hours (Table) 05/24/23 05/24/23 05/24/23 Range/Units 14:27 14:27 14:27 MCV 100.4 H (80.0-100.0) fL APTT 20.4 L (22.0-30.0) sec BUN 18 H (7-17) mg/dL
[2023-05-24] MEDS: LISINOPRIL-HCTZ 20-12.5 MG 1 EACH TAB PO SCH (22:54)
[2023-05-25] MEDS: CLOPIDOGREL 75 MG TAB PO SCH (08:02)
[2023-05-25] MEDS: ENOXAPARIN 40 MG/0.4 ML SYRINGE SQ SCH (08:02)
[2023-05-25] MEDS: ASPIRIN 325 MG TAB PO SCH (08:02)
[2023-05-25] MEDS: LISINOPRIL-HCTZ 20-12.5 MG 1 EACH TAB PO SCH ×2 (08:02→20:31)
[2023-05-25 11:41] LABS: Chol/HDL Ratio 2.84 Ratio; LDL Cholesterol,Calculated 95.1 mg/dL (0.0-131.0); VLDL Calculation 16.98 mg/dL (5.00-40.00)
--- NOTE | 2023-05-25 14:49 | P.CNNES ---
History of Present Illness Consult date: 05/25/23 Requesting physician: Cody Loza Reason for Consult: CVA History of Present Illness: Patient is a 82-year-old right-handed female with history of hypertension, otherwise healthy came to the hospital by ambulance yesterday at 1:13 PM for recurrent episodes of confusion. Patient states that she went to visit her aunt in [facility] on 05/19/2023, when she rang the doorbell, and suddenly she developed double vision, did not know where she was going. She stayed there and the symptoms passed in about 2-4 minutes max. She was fine over the next couple days. When they were returning back on 05/21/2023, patient's daughter was driving. Patient usually keeps a log of the mileage and the gave her the Greater to keep the mileage and she was completely confused, did not know how to use a Later, what to do with it. She always has been very good in the maths. This episode lasted for about a a few minutes. On Wednesday night and Wednesday morning, she was throwing up, and felt she has come up with the flu (as patient's also had similar flulike symptoms couple days prior). However later during Wednesday by 9 PM she was feeling better and the nausea vomiting resolved. Yesterday on Wednesday, while she was opening the mail, she again became confused, did not know what to do with the calculator for the phone. She then started crying. This episode lasted a bit longer, therefore the family called 911 and she was brought to the hospital. With all of these 3 episodes, there was no slurred speech, facial droop, loss of vision, focal numbness tingling or weakness or problem with the balance. EMS flow sheet not available in the chart. Vital signs arrival blood pressure 180/73, pulse is 75 temperature 98.5. Blood test shows normal CBC with elevated MCV 100.4, normal PTT PTT, CMP, troponin and a UA, urine drug screen negative. CT head revealed low attenuation left posterior parietal lobe. Acute/subacute ischemia in the differential diagnosis. No acute hemorrhage. EKG shows sinus rhythm, chest x-ray showed no acute cardiopulmonary process Patient has hypertension for years, but denies diabetes. Denies any tobacco or alcohol use. Patient takes lisinopril 10 mg daily. She does not take any antiplatelet medication at home. Review of Systems Constitutional: Denies chills, Denies fever Eyes: right diplopia (Occur transiently on Wednesday,), denies blurred vision, denies pain Ears: deny: decreased hearing, ear discharge Ears, nose, mouth and throat: Denies headache, Denies sore throat Cardiovascular: Denies chest pain, Denies shortness of breath Respiratory: Denies cough, Denies excessive sputum Gastrointestinal: Reports nausea, Reports vomiting, Denies abdominal pain, Denies diarrhea Genitourinary: Reports mixed incontinence, Reports stress incontinence, Denies dysuria, Denies hematuria Musculoskeletal: Denies low back pain, Denies myalgias, Denies neck pain Integumentary: Denies pruritus, Denies rash Neurological: Reports as per HPI Psychiatric: Denies anxiety, Denies depression Endocrine: Reports fatigue, Denies weight change Hematologic/Lymphatic: Reports easy bruising, Denies easy bleeding Past Medical History Past Medical History: GERD/Reflux, Hypertension, Musculoskeletal Disorder, Osteoarthritis (OA) Additional Past Medical History / Comment(s): fell on ice & fx. right elbow- currently in splint & sling, hx. rheumatic fever as a teen History of Any Multi-Drug Resistant Organisms: None Reported Past Surgical History: Hysterectomy Additional Past Surgical History / Comment(s): colonoscopy Past Anesthesia/Blood Transfusion Reactions: No Reported Reaction Past Psychological History: No Psychological Hx Reported Smoking Status: Never smoker Past Alcohol Use History: None Reported Past Drug Use History: None Reported - Past Family History Mother Family Medical History: CVA/TIA Medications and Allergies Home Medications Medication Instructions Recorded Confirmed Type lisinopriL [Zestril] 10 mg PO DAILY 11/05/21 05/24/23 History Allergies Allergy/AdvReac Type Severity Reaction Status Date / Time hydrocodone AdvReac dizzy Verified 05/24/23 15:51 Physical Examination - Vital Signs Vital Signs: Vital Signs Temp Pulse Pulse Resp BP BP Pulse Ox 05/25/23 07:58 97.7 F 77 16 145/63 96 05/25/23 06:17 79 19 153/67 96 05/25/23 04:15 79 19 05/25/23 00:00 98.2 F 79 20 140/82 99 05/24/23 21:30 80 17 145/87 97 05/24/23 17:00 82 20 172/85 98 05/24/23 16:00 86 22 181/96 98 05/24/23 15:00 80 22 154/90 99 05/24/23 14:45 74 20 168/81 99 05/24/23 14:30 72 22 172/91 97 05/24/23 14:15 70 21 174/77 96 05/24/23 14:00 71 20 165/69 96 05/24/23 13:45 70 22 181/81 97 05/24/23 13:25 98.5 F 75 16 180/73 97 Intake and Output 05/24/23 05/25/23 05/25/23 22:59 06:59 14:59 Other: Weight 81.647 kg Patient is an elderly female, very pleasant, in no acute distress. Patient is alert awake oriented to time place and person. Patient knows it is May 2023 and that she is in [facility] in [place]. She has some thought delay, sometimes prolonged latency to answer question. Speech and language functions are normal. Patient can name and repeat very well. No aphasia or dysarthria. Attention, concentration and fund of knowledge is adequate. Patient able to add a quarter, nickel, dime and a [place] to 41. On cranial nerve examination, pupils are equal, round and reacting to light, visual swain are full on confrontation, with no neglect on double simultaneous stimulation. Extraocular muscles are intact with no nystagmus. Face is symmetric, tongue protrudes to the midline. Palatal elevation and sensation normal, hearing and shoulder shrug normal, facial sensation normal. On muscle strength testing, there is no pronator drift and the strength is normal in arms and legs distally and proximally. Deep tendon reflexes are symmetric 2+ at the biceps, 2+ brachioradialis, 2 at the knees, 1+ ankles and plantars downgoing bilaterally. Sensory to touch is equal with no neglect on double simultaneous stimulation. Cerebellar function showed no ataxia for [id number] testing. No dysdiadochokinesia. No ataxia for [id number] testing on either side. Tone and bulk of muscles normal. Gait deferred.. On general examination, there is no carotid bruit or murmur, S1-S2 audible. Chest is clear on consultation. Abdomen is soft nontender. No organomegaly, bowel sounds present. Peripheral pulses are present. No edema. Results - Laboratory Findings CBC and BMP: 05/24/23 14:27 05/24/23 14:27 Abnormal Lab Findings: Abnormal Labs 05/24/23 05/24/23 05/24/23 14:27 14:27 14:27 MCV 100.4 H APTT 20.4 L BUN 18 H Assessment and Plan Assessment: * Possible recurrent TIA manifesting with transient double vision, mental confusion, lasting for 3-5 minutes. Current NIH stroke scale is 0. * Hypertension * Dyslipidemia Plan: * MRI of the brain without contrast, evaluate for acute CVA * 2-D echo with bubble study to rule out PFO * CTA head and neck showed: No evidence of dissection of the cervical internal carotid arteries or vertebral arteries. No evidence of high-grade intracranial stenosis or intracranial aneurysm. 25-50% stenosis of the right carotid bifurcation secondary to calcified plaque. Less than 25% stenosis of the left carotid bifurcation secondary to calcified plaque. * Fasting a.m. lipid panel cholesterol 173, LDL 95, HDL 60, triglycerides 84. Agree with starting Lipitor 40 mg daily. Target LDL <70. * Hemoglobin A1c * Patient was not taking any antiplatelet medication at home. Patient has been started on dual antiplatelet medication, probably for 3-4 weeks, then patient will stay on aspirin 81 mg indefinitely pending results of the TIA workup. * Permissive hypertension for next 24-48 hours * Close neuro checks as per protocol. * Check EEG, rule out any epileptiform activity. * Telemetry monitoring rule out any arrhythmia * DVT prophylaxis: Heparin 5000 units subcu every 8 hours * Neurology will continue to follow. Thank you for the consult.
--- NOTE | 2023-05-25 17:14 | P.PN ---
Progress Note - Text Progress Note Date: 05/25/23 Chief Complaint: Neuro symptoms This is a very pleasant 82-year-old patient who follows with Dr. 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 4 days ago wasvisiting family out of state. She is waiting for someone to come down. Wednesday she felt strange, started seeing doubled. [place] a bit confused.. Whether were driving back to [place] she was unable to calculate the distance normally she is very good with numbers. Has not been feeling right since then. She is finding it difficult to use some phrases. Difficult to use a telephone. No trouble walking. No change in speech. May 25: Patient's , 2 daughters at the bedside. She feels a think is a bit more clear. Able to use her cell phone. Pending MRI 2-D echo EEG. Other medications to continue. Blood pressure bit better. Discuss questions answered Active Medications Acetaminophen (Acetaminophen Tab 325 Mg Tab) 650 mg PO Q6HR PRN PRN Reason: Mild Pain or Fever > 100.5 Alprazolam (Alprazolam 0.25 Mg Tab) 0.25 mg PO Q6HR PRN PRN Reason: Anxiety Aspirin (Aspirin 325 Mg Tab) 325 mg PO DAILY [facility] Last Admin: 05/25/23 08:02 Dose: 325 mg Atorvastatin Calcium (Atorvastatin 40 Mg Tab) 40 mg PO HS [facility] Last Admin: 05/24/23 21:24 Dose: 40 mg Calcium Carbonate/Glycine (Calcium Carbonate 500 Mg Chewable) 1,000 mg PO Q4HR PRN PRN Reason: Dyspepsia Clopidogrel Bisulfate (Clopidogrel 75 Mg Tab) 75 mg PO DAILY [facility] Last Admin: 05/25/23 08:02 Dose: 75 mg Enoxaparin Sodium (Enoxaparin 40 Mg/0.4 Ml Syringe) 40 mg SQ DAILY [facility] Last Admin: 05/25/23 08:02 Dose: 40 mg Lisinopril/HCTZ (Lisinopril-Hctz 20-12.5 Mg 1 Each Tab) 1 each PO BID [facility] Last Admin: 05/25/23 08:02 Dose: 1 each Melatonin (Melatonin 3 Mg Tablet) 3 mg PO HS PRN PRN Reason: Insomnia Naloxone HCl (Naloxone 0.4 Mg/Ml 1 Ml Vial) 0.2 mg IV Q2M PRN PRN Reason: Opioid Reversal Ondansetron HCl (Ondansetron 4 Mg/2 Ml Vial) 4 mg IVP Q8HR PRN PRN Reason: Nausea And Vomiting Past medical history: GERD, hypertension, osteoarthritis, rheumatic fever as a teen Social history: . No smoking no alcohol Physical examination: VITAL SIGNS: 97.9, 78, 16, 137/63, 97% room air GENERAL: Reclining [place] comfortable EYES: Pupils equal. Conjunctiva normal. HEENT: External appearance of nose and ears normal, oral cavity grossly normal. NECK: JVD not raised; masses not palpable. HEART: First and second heart sounds are normal; no edema. LUNGS: Respiratory rate normal; clear to auscultation. ABDOMEN: Soft, nontender, liver spleen not palpable, no masses palpable. PSYCH: Alert and oriented x3; mood and affect normal. MUSCULOSKELETAL:No Clubbing/cyanosis;muscles-grossly intact. Brace on the left knee. OA. NEUROLOGICAL: Cranial nerves grossly intact; no facial asymmetry, power and sensation grossly intact. INVESTIGATIONS, reviewed in the clinical context: LDL 75 White count 7.9 hemoglobin 13.4 platelets 293 sodium 141 potassium 4.4 creatinine 0.79 UA drug screen: Negative EKG tracing personally reviewed by me-no sinus rhythm CT brain: No attenuation left posterior parietal lobe acute/subacute ischemia. 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 Symptoms started about 4 days ago. Patient complained of double vision, confusion. Now having trouble finding words. Cannot remember using her phone properly. No trouble walking. No trouble swallowing. Consult speech therapy. PTOT. Neurology following MRI of the brain with and without contrast. 2-D echocardiogram with bubble st udy. Aspirin. Lasix. Lipitor -Primary osteoarthritis multiple joints Patient does have a brace in the left knee Tylenol -Essential hypertension Lisinopril hydrochlorothiazide 20/12.5 twice a day Care was discussed with the patient. In September the bedside. Awaiting testing to be completed. Past Medical History Past Medical History: GERD/Reflux, Hypertension, Musculoskeletal Disorder, Osteoarthritis (OA) Additional Past Medical History / Comment(s): fell on ice 2 weeks ago & fx. right elbow-currently in splint & sling, hx. rheumatic fever as a teen History of Any Multi-Drug Resistant Organisms: None Reported Past Surgical History: Hysterectomy Additional Past Surgical History / Comment(s): colonoscopy Past Anesthesia/Blood Transfusion Reactions: No Reported Reaction Past Psychological History: No Psychological Hx Reported Smoking Status: Never smoker - Past Family History Mother Family Medical History: CVA/TIA
--- NOTE | 2023-05-25 17:40 | CA ---
Transthoracic Echo Report Name: Kimberly Fountain Age: 82 Gender: F : 1940 Exam Date: 05/25/2023 14:15 Exam Location: [facility] Ht (in): 61 Wt (lb): 180 Ordering Physician: Rocco Irizarry MD Attending/Referring Phys: [employer]er[employer] Supervisor Honorio Hudson Procedure CPT: Indications: bubble study Cardiac Hx: Technical Quality: Technically difficult study Contrast 1: Total Dose (mL): Contrast 2: Total Dose (mL): MEASUREMENTS (Male / Female) Normal Values 2D ECHO LV Diastolic Diameter PLAX 3.9 cm 4.2 - 5.9 / 3.9 - 5.3 cm LV Systolic Diameter PLAX 2.2 cm IVS Diastolic Thickness 1.2 cm 0.6 - 1.0 / 0.6 - 0.9 cm LVPW Diastolic Thickness 1.0 cm 0.6 - 1.0 / 0.6 - 0.9 cm LV Relative Wall Thickness 0.6 RV Internal Dim ED PLAX 1.9 cm LVOT Diameter 2.0 cm Aortic Root Diameter 2.8 cm LA Systolic Diameter LX 2.2 cm 3.0 - 4.0 / 2.7 - 3.8 cm LV Diastolic Volume MOD BP 33.9 cm??? 67 - 155 / 56 - 104 cm??? LV Systolic Volume MOD BP 12.4 cm??? - 58 / 19 - 49 cm??? LV Ejection Fraction MOD BP 63.3 % >= 55 % LV Cardiac Index MOD BP 944.6 cm???/min???m??? LV Diastolic Volume MOD 4C 37.7 cm??? LV Systolic Volume MOD 4C 17.1 cm??? LV Ejection Fraction MOD 4C 54.6 % LV Cardiac Index MOD 4C 905.5 cm???/min???m??? LV Diastolic Length 4C 6.9 cm LV Systolic Length 4C 6.2 cm LV Diastolic Volume MOD 2C 29.2 cm??? LV Systolic Volume MOD 2C 8.9 cm??? LV Ejection Fraction MOD 2C 69.6 % LV Cardiac Index MOD 2C 893.4 cm???/min???m??? LV Diastolic Length 2C 6.6 cm LV Systolic Length 2C 5.9 cm LA Volume 23.8 cm??? 18 - 58 / 22 - 52 cm??? LA Volume Index 12.4 cm???/m??? 16 - 28 cm???/m??? DOPPLER AV Peak Velocity 158.1 cm/s AV Peak Gradient 10.0 mmHg AV Mean Velocity 84.9 cm/s AV Mean Gradient 3.4 mmHg AV Velocity Time Integral 25.9 cm MV Peak Velocity 112.8 cm/s MV Peak Gradient 5.1 mmHg MV Mean Velocity 53.0 cm/s MV Mean Gradient 1.4 mmHg MV Velocity Time Integral 24.1 cm MR Peak Velocity 161.4 cm/s MR Peak Gradient 10.4 mmHg Mitral E Point Velocity 55.4 cm/s Mitral A Point Velocity 94.2 cm/s Mitral E to A Ratio 0.6 MV Deceleration Time 363.3 ms MV E' Velocity 4.9 cm/s Mitral E to MV E' Ratio 11.2 TR Peak Velocity 242.5 cm/s TR Peak Gradient 23.5 mmHg Right Ventricular Systolic Press 28.6 mmHg FINDINGS Left Ventricle Normal LV size and wall thickness. Left ventricular ejection fraction is estimated at 50-55 %. Right Ventricle Normal right ventricular size. Right Atrium Normal right atrial size. Left Atrium Normal left atrial size. Mitral Valve Aortic Valve Trileaflet aortic valve. Mild AV sclerosis/calcification. No aortic valve stenosis or regurgitation. Tricuspid Valve Tricuspid valve not well visualized. Trace TR. Pulmonic Valve Pulmonic valve not well visualized. No pulmonic regurgitation. Pericardium Normal pericardium however, not well visualized. Aorta Normal size aortic root. CONCLUSIONS Negative agitated saline study. Normal LV function Previewed by: Dr. Franki Griffin MD (Electronically Signed) Final Date: 25 May 2023 17:39
[2023-05-25] MEDS: ATORVASTATIN 40 MG TAB PO SCH (20:31)
[2023-05-26] MEDS: CLOPIDOGREL 75 MG TAB PO SCH (08:32)
[2023-05-26] MEDS: LISINOPRIL-HCTZ 20-12.5 MG 1 EACH TAB PO SCH (08:32)
[2023-05-26] MEDS: ASPIRIN 325 MG TAB PO SCH (08:32)
[2023-05-26] MEDS: ENOXAPARIN 40 MG/0.4 ML SYRINGE SQ SCH (08:32)
[2023-05-26 10:21] VITALS: TEMP 97.7
--- NOTE | 2023-05-26 13:42 | MR ---
EXAMINATION TYPE: MR brain wo/w con DATE OF EXAM: 05/26/2023 1:25 PM CLINICAL INDICATION:Female, 82 years old with history of stroke, Stroke/CVA. COMPARISON: 05/24/2023 TECHNIQUE: Multi planar, multi sequence imaging was performed through the brain including: T1, T2, In version recovery, susceptibility weighted imaging and gradient echo imaging and Diffusion weighted im aging. The patient was then given intravenous contrast and multi planar, T1 fat-saturation images wer e obtained. IV Contrast: 8 cc Gadavist FINDINGS: Restricted diffusion within the left parietal region predominantly the deep white matter with extensi on to the cortex. Smaller susceptibility blooming artifact within the sulcus in the area of infarct c ould represent blood products. Intracranial arterial flow voids are maintained. Midline structures sh ow no abnormality. Scattered foci of high T2 signal intensity are seen within the periventricular whi te matter. After administration of gadolinium, no abnormal enhancement is seen. The bone marrow signal is within normal limits. Paranasal sinuses and mastoid air cells: No significant paranasal sinus disease. Visualized orbits: Orbital contents are intact. IMPRESSION: 1. Acute/subacute CVA involving the left parietal deep white matter extending to the cortex.; Bloomin g Artifact within the sulci in this region could represent blood products, correlate for this finding is not seen on prior CT 05/24/2023. 2. Nonspecific white matter changes, likely related to small vessel ischemic disease
[2023-05-26 15:53] VITALS: BP 126/83; PULSE 95; RESP 18
--- NOTE | 2023-05-26 18:05 | P.PN ---
Subjective Progress Note Date: 05/26/23 Patient was seen for a follow-up. Patient states that she is feeling better. Denies any headache. Denies any new neurological symptoms. Objective - Vital Signs Vital signs: Vital Signs Temp 97.7 F 05/26/23 08:30 Pulse 95 05/26/23 15:51 Resp 18 05/26/23 15:51 BP 126/83 05/26/23 15:51 Pulse Ox 94 L 05/26/23 15:51 FiO2 Intake & Output 05/25/23 05/26/23 05/26/23 18:59 06:59 18:59 Intake Total 360 240 Output Total 0 Balance 360 240 Weight 81.647 kg Intake: Oral 360 240 Output: Urine 0 Stool 0 Other: # Voids 1 - Exam Mental status, speech and language functions are normal. Cranial nerves are normal. - Labs CBC & Chem 7: 05/24/23 14:27 05/24/23 14:27 Assessment and Plan Assessment: * Embolic stroke involving the left parietal deep white matter extending to the cortex, presenting with recurrent TIAs. Patient's current NIH stroke scale is 0. * Hypertension * Dyslipidemia Plan: * MRI of the brain without contrast, revealed acute/subacute CVA involving the left parietal deep white matter extending to the cortex. Blooming artifact within the sulci in this region could represent blood products, correlate for this finding is not seen on prior CT 05/24/2023. Nonspecific white matter changes, likely related to small vessel ischemic disease. Patient is clinically stable. Denies headache. * 2-D echo revealed normal left-ventricular size, wall thickness and systolic function with EF 50-55%. Normal left atrial size. Negative agitated saline study. No embolic source. * CTA head and neck showed: No evidence of dissection of the cervical internal carotid arteries or vertebral arteries. No evidence of high-grade intracranial stenosis or intracranial aneurysm. 25-50% stenosis of the right carotid bifurcation secondary to calcified plaque. Less than 25% stenosis of the left carotid bifurcation secondary to calcified plaque. * Fasting a.m. lipid panel cholesterol 173, LDL 95, HDL 60, triglycerides 84. Agree with starting Lipitor 40 mg daily. Target LDL <70. * Hemoglobin A1c pending. * Patient was not taking any antiplatelet medication at home. Patient has been started on dual antiplatelet medication, which may be continued for 3 weeks, then patient will stay on aspirin 81 mg indefinitely. * Optimize control of blood pressure. * EEG was normal awake and drowsy. No epileptiform activity was seen. * Telemetry monitoring showing sinus rhythm with some PVCs. No other arrhythmia. * Neurologically clear for discharge. Recommend follow-up with neurologist in 2-3 weeks.
--- NOTE | 2023-05-26 18:24 | P.DS ---
Providers Date of admission: 05/24/23 16:49 Expected date of discharge: 05/26/23 Attending physician: Rocco Irizarry Consults: 05/24/23 16:50 Consult Physician Routine Consulting Provider: Alvaro Caldera Consult Reason/Comments: CVA Do you want consulting provider notified?: Yes Primary care physician: Wes Martin [facility] Course: Chief Complaint: Neuro symptoms This is a very pleasant 82-year-old patient who follows with Dr. 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 4 days ago wasvisiting family out of state. She is waiting for someone to come down. Wednesday she felt strange, started seeing doubled. [place] a bit confused.. Whether were driving back to [place] she was unable to calculate the distance normally she is very good with numbers. Has not been feeling right since then. She is finding it difficult to use some phrases. Difficult to use a telephone. No trouble walking. No change in speech. May 25: Patient's , 2 daughters at the bedside. She feels a think is a bit more clear. Able to use her cell phone. Pending MRI 2-D echo EEG. Other medications to continue. Blood pressure bit better. Discuss questions answered May 26: MRI confirmed area of stroke. Otherwise patient stable. Will to 3 weeks of Plavix. Aspirin to continue. Follow-up neurology outpatient. Blood pressure medications adjusted. Past medical history: GERD, hypertension, osteoarthritis, rheumatic fever as a teen Social history: . No smoking no alcohol Physical examination: VITAL SIGNS: 37.7, 95, 18, 09/17/1992, 94% room air GENERAL: comfortable EYES: Pupils equal. Conjunctiva normal. HEENT: External appearance of nose and ears normal, oral cavity grossly normal. NECK: JVD not raised; masses not palpable. HEART: First and second heart sounds are normal; no edema. LUNGS: Respiratory rate normal; clear to auscultation. ABDOMEN: Soft, nontender, liver spleen not palpable, no masses palpable. PSYCH: Alert and oriented x3; mood and affect normal. MUSCULOSKELETAL:No Clubbing/cyanosis;muscles-grossly intact. Brace on the left knee. OA. NEUROLOGICAL: Cranial nerves grossly intact; no facial asymmetry, power and sensation grossly intact. INVESTIGATIONS, reviewed in the clinical context: 2-D echocardiogram: EF 50-55%. Negative agitated saline study MRI brain: Acute/subacute CVA involving the left parietal deep white matter extending to the cortex. Nonspecific) changes LDL 75 White count 7.9 hemoglobin 13.4 platelets 293 sodium 141 potassium 4.4 creatinine 0.79 UA drug screen: Negative EKG tracing personally reviewed by me-no sinus rhythm CT brain: No attenuation left posterior parietal lobe acute/subacute ischemia. 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 Symptoms started about 4 days ago. Patient complained of double vision, confusion. Now having trouble finding words. Cannot remember using her phone properly. No trouble walking. No trouble swallowing. Consult speech therapy. PTOT. Neurology following MRI of the brain with and without contrast-results as above. 2-D echocardiogram with bubble study-negative. Aspirin. Plavix for total of 3 weeks Lipitor -Primary osteoarthritis multiple joints Patient does have a brace in the left knee Tylenol -Essential hypertension Lisinopril hydrochlorothiazide 20/12.5 daily at bedtime Disposition: Home Past Medical History Past Medical History: GERD/Reflux, Hypertension, Musculoskeletal Disorder, Osteoarthritis (OA) Additional Past Medical History / Comment(s): fell on ice 2 weeks ago & fx. right elbow-currently in splint & sling, hx. rheumatic fever as a teen History of Any Multi-Drug Resistant Organisms: None Reported Past Surgical History: Hysterectomy Additional Past Surgical History / Comment(s): colonoscopy Past Anesthesia/Blood Transfusion Reactions: No Reported Reaction Past Psychological History: No Psychological Hx Reported Smoking Status: Never smoker - Past Family History Mother Family Medical History: CVA/TIA Plan - Discharge Summary Discharge Rx Participant: Yes New Discharge Prescriptions: New Aspirin 81 mg PO DAILY tab Atorvastatin [Lipitor] 40 mg PO HS #30 tab Clopidogrel [Plavix] 75 mg PO DAILY #30 tab Lisinopril-Hctz 20-12.5 mg [Zestoretic 20-12.5] 1 each PO HS #30 tab Discontinued lisinopriL [Zestril] 10 mg PO DAILY Discharge Medication List Aspirin 81 mg PO DAILY tab 05/26/23 [Rx] Atorvastatin [Lipitor] 40 mg PO HS #30 tab 05/26/23 [Rx] Clopidogrel [Plavix] 75 mg PO DAILY #30 tab 05/26/23 [Rx] Lisinopril-Hctz 20-12.5 mg [Zestoretic 20-12.5] 1 each PO HS #30 tab 05/26/23 [Rx] Follow up Appointment(s)/Referral(s): Marzena Massey MD [REFERRING] - 1 Week Wes Martin MD [Primary Care Provider] - 1-2 days Patient Instructions/Handouts: Ischemic Stroke (GEN) Discharge Disposition: HOME SELF-CARE
--- NOTE | 2023-05-27 01:05 | EEG ---
DATE OF SERVICE: 05/26/2023 ELECTROENCEPHALOGRAM REPORT PREAMBLE: This is an 82-year-old female with episode of confusion. This study is performed to evaluate for any epileptiform activity. EEG FINDINGS: This is a 21-channel digital EEG recorded with video component, utilizing 10/20 international system with referential and bipolar montages. Background consists of well developed, well regulated, moderate voltage activity in 9 hertz alpha. Background is posterior dominant and reactive to eye opening and closing. Photic driving response was seen with some flash frequencies. Hyperventilation was not done. Drowsiness was seen with appearance of bilaterally symmetric theta frequency rhythm. Deeper stages of sleep were not attained. No focal or generalized epileptiform activity was seen. EKG channel showed no obvious arrhythmia. IMPRESSION: This is a normal awake and drowsy EEG. No focal, lateralized or epileptiform activity was seen. MMODL / IJN: [id number] / MTDD
[2023-05-27] MEDS ORDERED: ASPIRIN 81 MG PO SCH (09:00)
== END 2023-05-26 18:09 | disposition home or self-care (01) | DRG 66 ==
LOC: EC 13:13 → 3SCARD 16:49
PROVIDERS: ADMIT Hospitalist; ATTEND Hospitalist
PROC: 4A10X4Z Monitoring of Central Nervous Electrical Activity, External Approach (ICD-10-PCS; principal; 2023-05-26)
DX: I63.9 Cerebral infarction, unspecified (principal); R47.01 Aphasia; K21.9 Gastro-esophageal reflux disease without esophagitis; I10 Essential (primary) hypertension; R40.4 Transient alteration of awareness; M15.9 Polyosteoarthritis, unspecified; E78.5 Hyperlipidemia, unspecified; R29.700 NIHSS score 0; Z79.82 Long term (current) use of aspirin; Z79.02 Long term (current) use of antithrombotics/antiplatelets; Z90.710 Acquired absence of both cervix and uterus; Z79.899 Other long term (current) drug therapy; Z88.5 Allergy status to narcotic agent; Z91.81 History of falling
CPT/HCPCS: 36415; 70450; 70496; 70498; 70553; 71046; 80053; 80061; 80306; 81003; 84484; 85025; 85610; 85730; 93005; 93306; 95816; 96360; 96361; 96372; 99285

== ENCOUNTER → 2023-12-30 | Outpatient (CLI) | payer MEDICARE ==
--- NOTE | 2024-01-02 15:09 | MM ---
Reason for Exam: Screening (asymptomatic). Last screening mammogram was performed 12 month(s) ago. Patient History: Menarche at age 12. First Full-Term at age 33. Late child-bearing (after 30). Hysterectomy at age 47. Postmenopausal. Estrogen, starting at age 53 for 19 years. 06/29/2002, Cyst Aspiration on the Right side. Maternal aunt had breast cancer, age 50. Risk Values: Trice 5 year model risk: 2.4%. NCI Lifetime model risk: 3.2%. Prior Study Comparison: 07/29/2018 Right Diagnostic Mammogram, [facility]. 03/07/2020 Bilateral Screening Mammogram, [facility]. 12/24/2022 Bilateral MG 3D screening mammo w/cad, [facility]. Tissue Density: There are scattered areas of fibroglandular density. Findings: Analyzed By CAD. There is no suspicious group of microcalcifications or new suspicious mass in either breast. Overall Assessment: Negative, BI-RAD 1 Management: Screening Mammogram of both breasts in 1 year. . Patient should continue monthly self-breast exams. A clinical breast exam by your physician is recommended on an annual basis. This exam should not preclude additional follow-up of suspicious palpable abnormalities. Note on Trice scores and lifetime risk: 1. A Trice score greater than 3% is considered moderate risk. If this is the case, consider specialist referral to assess eligibility for a risk reducing agent. 2. If overall lifetime risk for the development of breast cancer is 20% or higher, the patient may qualify for future screening with alternating mammogram and breast MRI. Electronically signed and approved by: Bill Dunn M.D. Radiologist
== END | disposition home or self-care (01) ==
LOC: RADMAMWWP 13:18
PROVIDERS: ATTEND Pediatrics
DX: Z12.31 Encounter for screening mammogram for malignant neoplasm of breast (principal); Z78.0 Asymptomatic menopausal state; Z80.3 Family history of malignant neoplasm of breast
CPT/HCPCS: 77063; 77067

== ENCOUNTER 2024-11-03 11:57 | Emergency (ER) | payer MEDICARE ==
--- NOTE | 2024-11-03 12:10 | ED ---
Lower Extremity Injury HPI - General Stated Complaint: L knee pain Time Seen by Provider: 11/03/24 12:08 Source: patient, RN notes reviewed Mode of arrival: wheelchair Limitations: no limitations - History of Present Illness Initial Comments: This is an 84-year-old female presenting from [facility] for left leg pain since the start of this week. Patient states pain is constant, starting at her knee and moving to the inside of her left thigh. Patient states pain is manageable when seated but worse when walking (9/10) and preventing her from sleeping. States provider at urgent care was concerned for possible blood clot. Endorses history of left TKR 1 year ago. Denies recent trauma or lower extremity swelling. Endorses use of Tylenol with minimal relief. Onset/Timin -: days(s) Injury: Leg: Left, Knee: Left Severity scale (1-10): 9 Worsens With: weight bearing, movement - Related Data Previous Rx's Medication Instructions Recorded Aspirin 81 mg PO DAILY tab 05/26/23 Atorvastatin [Lipitor] 40 mg PO HS #30 tab 05/26/23 Clopidogrel [Plavix] 75 mg PO DAILY #30 tab 05/26/23 Lisinopril-Hctz 20-12.5 mg 1 each PO HS #30 tab 05/26/23 [Zestoretic 20-12.5] Allergies Allergy/AdvReac Type Severity Reaction Status Date / Time hydrocodone AdvReac dizzy Verified 11/03/24 12:13 Review of Systems ROS Statement: Those systems with pertinent positive or pertinent negative responses have been documented in the HPI. ROS Other: All systems not noted in ROS Statement are negative. Past Medical History Past Medical History: GERD/Reflux, Hypertension, Musculoskeletal Disorder, Osteoarthritis (OA) Additional Past Medical History / Comment(s): fell on ice & fx. right elbow- currently in splint & sling, hx. rheumatic fever as a teen History of Any Multi-Drug Resistant Organisms: None Reported Past Surgical History: Hysterectomy Additional Past Surgical History / Comment(s): colonoscopy Past Anesthesia/Blood Transfusion Reactions: No Reported Reaction Past Psychological History: No Psychological Hx Reported Smoking Status: Never smoker Past Alcohol Use History: None Reported Past Drug Use History: None Reported - Past Family History Mother Family Medical History: CVA/TIA General Exam General appearance: alert, in no apparent distress Head exam: Present: atraumatic, normocephalic, normal inspection Eye exam: Present: normal appearance, PERRL, EOMI. Absent: scleral icterus, conjunctival injection, periorbital swelling ENT exam: Present: normal exam, mucous membranes moist Neck exam: Present: normal inspection. Absent: tenderness, meningismus, lymphadenopathy Respiratory exam: Present: normal lung sounds bilaterally. Absent: respiratory distress, wheezes, rales, rhonchi, stridor Cardiovascular Exam: Present: regular rate, normal rhythm, normal heart sounds. Absent: systolic murmur, diastolic murmur, rubs, gallop, clicks GI/Abdominal exam: Present: soft, normal bowel sounds. Absent: distended, tenderness, guarding, rebound, rigid Extremities exam: Present: full ROM, tenderness (Positive diffuse LLE tenderness. Positive left lateral hip tenderness without crepitus.), normal capillary refill, pedal edema (LLE edema +1 without erythema, warmth, stasis dermatitis.), calf tenderness (Positive LLE Homans' sign), other (LLE distal neurovascular intact. Posterior tibialis pulse +2.). Absent: joint swelling Back exam: Present: normal inspection. Absent: tenderness, paraspinal tenderness, vertebral tenderness Neurological exam: Present: alert, oriented X3, CN II-XII intact Psychiatric exam: Present: normal affect, normal mood Skin exam: Present: warm, dry, intact, normal color. Absent: rash Course Vital Signs 11/03/24 11/03/24 12:08 15:45 Temperature 97.8 F 98.2 F Pulse Rate 74 78 Respiratory 18 20 Rate Blood Pressure 157/82 150/71 O2 Sat by Pulse 98 99 Oximetry Medical Decision Making - Medical Decision Making Was pt. sent in by a medical professional or institution (, PA, HEALTH PROMOTER, urgent care, hospital, or group home...) When possible be specific @ -[facility] Did you speak to anyone other than the patient for history (EMS, parent, family, police, friend...)? What history was obtained from this source @ -No Did you review nursing and triage notes (agree or disagree)? Why? @ -I reviewed and agree with nursing and triage notes Were old charts reviewed (outside hosp., previous admission, EMS record, old EKG, old radiological studies, urgent care reports/EKG's, group home records)? Report findings @ -No old charts were reviewed Differential Diagnosis (chest pain, altered mental status, abdominal pain women, abdominal pain men, vaginal bleeding, weakness, fever, dyspnea, syncope, headache, dizziness, GI bleed, back pain, seizure, CVA, palpatations, mental health, musculoskeletal)? @ -Differential Musculoskeletal Muscular strain, contusion, ligament sprain, fracture, arthritis, septic arthritis, bursitis, cellulitis, muscle spasm, nerve compression, DVT, arterial occlusion, herpes zoster, electrolyte abnormality, tumor.... This is not meant to be in all inclusive list EKG interpreted by me (3pts min.). @ -Not done X-rays interpreted by me (1pt min.). @ -None done CT interpreted by me (1pt min.). @ - CT of left hip and knee reveals no acute osseous process, fracture, dislocation. U/S interpreted by me (1pt. min.). @ -LLE Doppler ultrasound reveals no DVT. What testing was considered but not performed or refused? (CT, X-rays, U/S, labs)? Why? @ -None What meds were considered but not given or refused? Why? @ -None Did you discuss the management of the patient with other professionals (professionals i.e. , PA, HEALTH PROMOTER, lab, RT, psych nurse, dialysis social worker, truant officer, teacher, zoology technical officer, adult protective caseworker)? Give summary @ -No Was smoking cessation discussed for >3mins.? @ -No Was critical care preformed (if so, how long)? @ -No Were there social determinants of health that impacted care today? How? (Homelessness, low income, unemployed, alcoholism, drug addiction, transportation, low edu. Level, literacy, decrease access to med. care, prison, rehab)? @ -No Was there de-escalation of care discussed even if they declined (Discuss DNR or withdrawal of care, Hospice)? DNR status @ -No What co-morbidities impacted this encounter? (DM, HTN, Smoking, COPD, CAD, Cancer, CVA, ARF, Chemo, Hep., AIDS, mental health diagnosis, sleep apnea, morbid obesity)? @ -None Was patient admitted / discharged? Hospital course, mention meds given and route, prescriptions, significant lab abnormalities, going to OR and other pertinent info. @ -LLE Doppler ultrasound reveals no DVT. CT of left hip and knee reveals no acute osseous process, fracture, dislocation. IM Toradol provided for pain with some relief noted by patient. Advised follow-up with PCP/orthopedics for ongoing management of left lower extremity pain. Discussed patient with Dr. Garibay. Undiagnosed new problem with uncertain prognosis? @ -Leg pain Drug Therapy requiring intensive monitoring for toxicity (Heparin, Nitro, Insulin, Cardizem)? @ -No Were any procedures done? @ -No Diagnosis/symptom? @ -Left leg pain Acute, or Chronic, or Acute on Chronic? @ -Acute Uncomplicated (without systemic symptoms) or Complicated (systemic symptoms)? @ -Uncomplicated Side effects of treatment? @ -No Exacerbation, Progression, or Severe Exacerbation? @ -No Poses a threat to life or bodily function? How? (Chest pain, [place], [place], pneumonia, PE, COPD, DKA, ARF, appy, cholecystitis, CVA, Diverticulitis, Homicidal, Suicidal, threat to staff... and all critical care pts) @ -No Disposition Clinical Impression: Left leg pain Disposition: HOME SELF-CARE Condition: Good Instructions (If sedation given, give patient instructions): Leg Pain (ED) Additional Instructions: Alternate Tylenol/Motrin every 4 hours for pain. Follow-up with orthopedics for ongoing evaluation Is patient prescribed a controlled substance at d/c from ED?: No Referrals: Wes Martin MD [Primary Care Provider] - 1-2 days Christiano Moraes DO [Doctor of Osteopathic Medicine] - 1-2 days Time of Disposition: 14:56
--- NOTE | 2024-11-03 13:42 | US ---
EXAMINATION TYPE: US venous doppler duplex LE LT DATE OF EXAM: 11/03/2024 1:29 PM COMPARISON: NONE CLINICAL INDICATION: Female, 84 years old with history of LLE pain; LLE pain x 4 days after exercise. No hx of DVT. Takes a baby aspirin daily, Pain TECHNIQUE: The lower extremity deep venous system is examined utilizing real time linear array sonog saeed with graded compression, color doppler sonography, and spectral doppler. SIDE PERFORMED: Left FINDINGS: VESSELS IMAGED: Common Femoral Vein Deep Femoral Vein Greater Saphenous Vein * Femoral Vein Popliteal Vein Small Saphenous Vein * Proximal Calf Veins (* superficial vessels) . Left Leg: No evidence for DVT, Color Doppler imaging shows patency of the vessels. Spectral waveform s are within normal limits. IMPRESSION: No ultrasound evidence for deep venous thrombosis. [facility], , 11/03/2024 1:40 PM
[2024-11-03] MEDS: KETOROLAC 15 MG/ML 1 ML VIAL IM STA (14:18)
--- NOTE | 2024-11-03 14:43 | CT ---
EXAMINATION TYPE: CT knee LT wo con CT DLP: 1090.1 mGycm, Automated exposure control for dose reduction was used. DATE OF EXAM: 11/03/2024 2:34 PM COMPARISON: Bilateral knee radiograph 08/25/2018 CLINICAL INDICATION:Female, 84 years old with history of Significant LLE pain. Unable to ambulate; P HH, TECHNIQUE: Axial images were obtained of the left knee without the use of IV contrast. Additional co yessenia and sagittal reformatted images and soft tissue and bone window were obtained for review. FINDINGS: Postsurgical changes from total left knee arthroplasty. Hardware appears intact with approp riate alignment. No periprosthetic lucency identified to suggest loosening. This creates streak artif act which limits evaluation. There is no evidence of fracture, subluxation, or dislocation. No signi ficant soft tissue swelling. Small suprapatellar joint effusion. No focal muscular atrophy or edema i s identified. Mild atherosclerotic calcification of the arterial vasculature. IMPRESSION: 1. No acute fracture or dislocation. 2. Postsurgical changes from right knee arthroplasty. Hardware appears intact without lucency to sugg est loosening. [facility], , 11/03/2024 2:40 PM
--- NOTE | 2024-11-03 14:47 | CT ---
EXAMINATION TYPE: CT hip LT wo con CT DLP: 1090.1 mGycm, Automated exposure control for dose reduction was used. DATE OF EXAM: 11/03/2024 2:34 PM COMPARISON: None CLINICAL INDICATION:Female, 84 years old with history of Significant LLE pain. Unable to ambulate; P HH, TECHNIQUE: Axial images were obtained of the left hip without the use of IV contrast. Additional cor onal and sagittal reformatted images and soft tissue and bone window were obtained for review. FINDINGS: Diffuse bone demineralization with limits evaluation. There is no evidence of fracture, sub luxation, or dislocation. There is superior joint space narrowing with subchondral cystic changes an d marginal osteophytosis of the left hip. Multilevel degenerative changes of the visualized lumbar sp ine. No significant soft tissue swelling or joint effusion is identified. No focal muscular atrophy o r edema is identified. No radiopaque foreign body identified. Degenerative changes of the left SI tami nt with vacuum changes. Diverticulosis of the visualized distal colon without evidence of acute diverticulitis. Uterus appear s surgically absent. Left ovarian 2.3 cm cystic lesion. IMPRESSION: 1. No acute fracture or dislocation. 2. Moderate osteoarthritic changes of the left hip. 3. Left ovarian 2.3 cm indeterminate cystic lesion. Recommend further evaluation with outpatient pelv ic ultrasound. 4. Colonic diverticulosis without visualized acute diverticulitis. [facility], , 11/03/2024 2:44 PM
[2024-11-03 15:46] VITALS: BP 150/71; PULSE 78; RESP 20; TEMP 98.2
== END 2024-11-03 15:47 | disposition home or self-care (01) ==
LOC: EC 11:57
DX: M25.562 Pain in left knee (principal); Z88.5 Allergy status to narcotic agent
CPT/HCPCS: 93971; 73700 ×2; 99284; 96372; J1885

== ENCOUNTER → 2025-02-05 | Outpatient (CLI) | payer MEDICARE ==
--- NOTE | 2025-02-05 11:53 | MM ---
Reason for Exam: Screening (asymptomatic). Last mammogram was performed 1 year(s) and 1 month(s) ago. Patient History: Menarche at age 12. First Full-Term at age 33. Late child-bearing (after 30). Hysterectomy at age 47. Postmenopausal. Estrogen, starting at age 53 for 19 years. 06/29/2002, Cyst Aspiration on the Right side. Maternal aunt had breast cancer, age 50. Risk Values: Trice 5 year model risk: 2.3%. NCI Lifetime model risk: 2.8%. Prior Study Comparison: 03/07/2020 Bilateral Screening Mammogram, [facility]. 12/24/2022 Bilateral MG 3D screening mammo w/cad, [facility]. 12/30/2023 Bilateral MG 3D screening mammo w/cad, [facility]. Tissue Density: There are scattered areas of fibroglandular density. Findings: Analyzed By CAD. Benign vascular calcifications on the right. Benign bilateral oil cyst calcifications. Chronic nodularity superior subareolar right breast. There is no suspicious group of microcalcifications or new suspicious mass in either breast. Overall Assessment: Benign, BI-RAD 2 Management: Screening Mammogram of both breasts in 1 year. Patient should continue monthly self-breast exams. A clinical breast exam by your physician is recommended on an annual basis. This exam should not preclude additional follow-up of suspicious palpable abnormalities. Note on Trice scores and lifetime risk: 1. A Trice score greater than 3% is considered moderate risk. If this is the case, consider specialist referral to assess eligibility for a risk reducing agent. 2. If overall lifetime risk for the development of breast cancer is 20% or higher, the patient may qualify for future screening with alternating mammogram and breast MRI. [facility], , 02/05/2025 11:50 AM. Electronically signed and approved by: Bill Dunn M.D. Radiologist
== END | disposition home or self-care (01) ==
LOC: RADMAMWWP 10:36
PROVIDERS: ATTEND Pediatrics
DX: Z12.31 Encounter for screening mammogram for malignant neoplasm of breast (principal); R92.323 Mammographic fibroglandular density, bilateral breasts; Z78.0 Asymptomatic menopausal state; Z80.3 Family history of malignant neoplasm of breast
CPT/HCPCS: 77063; 77067